=== PATIENT | male | born 1950 | race African-American/Black ===

== ENCOUNTER 2016-09-10 08:56 | Emergency (ER) | payer OTHER ==
[~2016-09-10] VITALS: Ht 175.3 cm; Wt 59.0 kg
[~2016-09-10 08:56] MED LIST: ACETAMINOPHEN-1 EAC1 ORAL; ALBUTEROL SULF8.5 GM INH; ASPIR 8181 MG ORAL; BENAZEPRIL HCL20 MG ORAL; IBUPROFEN600 MG ORAL; INDOMETHACIN75 MG ORAL; OMEPRAZOLE20 M2 ORAL
--- NOTE | 2016-09-10 09:17 | Emergency Room Report ---
History of Present Illness General Chief Complaint: Pain Source: Patient Present Illness HPI Patient present with complaints of right flank pain ongoing for the past one day He reports that he thinks he might of strained it as he was reaching for a jacket However the pain has not been persisting on the right flank area Pain is worse with movement Denies any chest pain or shortness of breath Patient does drink alcohol regularly And there is some right upper quadrant component to the pain as well Denies any vomiting or diarrhea Allergies: Coded Allergies: No Known Allergies (Unverified , 02/03/14) Patient History Past Medical History: see triage record Pertinent Family History: none Reviewed Nursing Documentation: PMH: Agreed, PSxH: Agreed Nursing Documentation-PMH Past Medical History: No History, Except For Hx Hypertension: Yes Review of Systems All Other Systems: negative except mentioned in HPI Physical Exam Vital Signs Date Time Temp Pulse Resp B/P Pulse Ox O2 Delivery O2 Flow Rate FiO2 09/10/16 09:00 97.7 96 15 175/99 98 Room Air Sp02 EP Interpretation: reviewed, normal General Appearance: well appearing, no apparent distress Head: normocephalic, atraumatic Eyes: bilateral eye EOMI, bilateral eye PERRL, bilateral eye other - Mild scleral icterus ENT: hearing grossly normal, normal pharynx, TMs + canals normal, uvula midline Neck: full range of motion, supple, no meningismus, no bony tend Respiratory: lungs clear, normal breath sounds, no rhonchi, no respiratory distress, no retraction, no accessory muscle use Cardiovascular #1: normal peripheral pulses, regular rate, rhythm, no edema, no gallop, no JVD, no murmur Gastrointestinal: normal bowel sounds, non tender, soft, no mass, no organomegaly, non-distended, no guarding, no hernia, no pulsatile mass, no rebound Genitourinary: no CVA tenderness Musculoskeletal: normal inspection Neurologic: oriented x3, responsive, 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 tested, motor strength/ tone normal, sensory intact Psychiatric: mood/affect normal Skin: normal color, no rash, warm/dry, palpation normal Lymphatic: normal inspection, no adenopathy Medical Decision Making Diagnostic Impression: Primary Impression: Flank pain Additional Impressions: Kidney stone Alcoholic hepatitis ER Course Multiple differentials considered Including but not limited to kidney disease, liver disease, infectious pathology Patient has history of significant alcohol abuse Liver function tests remain at similar elevated levels as previous CT does show questionable small kidney stone on the right side Remains hemodynamically stable at this time feels improved and is appropriate for close outpatient followup Labs Test 09/10/16 09:24 White Blood Count 6.2 K/UL (4.8-10.8) Red Blood Count 4.07 M/UL (4.70-6.10) Hemoglobin 13.5 G/DL (14.2-18.0) Hematocrit 41.6 % (42.0-52.0) Mean Corpuscular Volume 102 FL (80-99) Mean Corpuscular Hemoglobin 33.3 PG (27.0-31.0) Mean Corpuscular Hemoglobin Concent 32.6 G/DL (32.0-36.0) Red Cell Distribution Width 15.4 % (11.6-14.8) Platelet Count 146 K/UL (150-450) Mean Platelet Volume 8.2 FL (6.5-10.1) Neutrophils (%) (Auto) 45.7 % (45.0-75.0) Lymphocytes (%) (Auto) 34.8 % (20.0-45.0) Monocytes (%) (Auto) 13.4 % (1.0-10.0) Eosinophils (%) (Auto) 3.9 % (0.0-3.0) Basophils (%) (Auto) 2.2 % (0.0-2.0) Urine Color Pale yellow Urine Appearance Clear Urine pH 6 (4.5-8.0) Urine Specific [place] 1.015 (1.005-1.035) Urine Protein Negative (NEGATIVE) Urine Glucose (UA) Negative (NEGATIVE) Urine Ketones Negative (NEGATIVE) Urine Occult Blood Negative (NEGATIVE) Urine Nitrite Negative (NEGATIVE) Urine Bilirubin Negative (NEGATIVE) Urine Urobilinogen Normal MG/DL (0.0-1.0) Urine Leukocyte Esterase Negative (NEGATIVE) Sodium Level 136 mEQ/L (135-145) Potassium Level 3.9 mEQ/L (3.4-4.9) Chloride Level 97 mEQ/L (98-107) Carbon Dioxide Level 26 mEQ/L (20-30) Anion Gap 13 (5-15) Blood Urea Nitrogen 17 mg/dL (7-23) Creatinine 1.0 mg/dL (0.7-1.2) Estimat Glomerular Filtration Rate > 60 mL/min (>60) Glucose Level 120 mg/dL (74-106) Calcium Level 8.8 mg/dL (8.6-10.2) Total Bilirubin 0.5 mg/dL (0.0-1.2) Aspartate Amino Transf (AST/SGOT) 67 U/L (5-40) Alanine Aminotransferase (ALT/SGPT) 47 U/L (3-41) Alkaline Phosphatase 172 U/L (40-129) Total Protein 7.1 g/dL (6.6-8.7) Albumin 3.4 g/dL (3.5-5.2) Globulin 3.7 g/dL Albumin/Globulin Ratio 0.9 (1.0-2.7) Lipase 28 U/L (< 60) Serum Alcohol < 10 mg/dL Rhythm Strip Diag. Results EP Interpretation: yes Rate: 78 Rhythm: NSR, no PVC's, no ectopy CT/MRI/US Diagnostic Results CT/MRI/US Diagnostic Results : Impression CT abdomen pelvis:Impression: Possible wall thickening of the proximal duodenum , if real could indicate duodenitis or peptic ulcer disease. Possible wall thickening of the gastric antrum, more likely an artifact of under distention No acute abnormality otherwise Small questionable faint nonobstructive calculus within the right renal collecting system Diverticulosis. No evidence of diverticulitis. Last Vital Signs Date Time Temp Pulse Resp B/P Pulse Ox O2 Delivery O2 Flow Rate FiO2 09/10/16 09:00 97.7 96 15 175/99 98 Room Air Status: improved Disposition: HOME, SELF-CARE Condition: Improved Scripts Famotidine (PEPCID) 40 Mg Tablet 40 MG PO DAILY, #14 TAB 0 Refills Prov: YURIDIA HOPKINS D.O. 09/10/16 Referrals: NOT CHOSEN IPA/MD,REFERRING (PCP) Additional Instructions: Patient is provided with the discharge instructions notified to follow up with primary doctor in the next 2-3 days otherwise return to the er with any worsening symptoms. Please note that this report is being documented using [employer] technology. This can lead to erroneous entry secondary to incorrect interpretation by the dictating instrument. YURIDIA HOPKINS D.O. Sep 10, 2016 09:17
[2016-09-10 09:57] LABS: BASOPHILS % (AUTO) 2.2 % (0.0-2.0); EOSINOPHILS % (AUTO) 3.9 % (0.0-3.0); LYMPHOCYTES % (AUTO) 34.8 % (20.0-45.0); MEAN CORPUSCULAR HEMOGLOBIN 33.3 PG (27.0-31.0); MEAN CORPUSCULAR HGB CONC 32.6 G/DL (32.0-36.0); MEAN CORPUSCULAR VOLUME 102 FL (80-99); MEAN PLATELET VOLUME 8.2 FL (6.5-10.1); MONOCYTES % (AUTO) 13.4 % (1.0-10.0); NEUTROPHILS % (AUTO) 45.7 % (45.0-75.0); PLATELET COUNT 146 K/UL (150-450); RED BLOOD COUNT 4.07 M/UL (4.70-6.10); RED CELL DISTRIBUTION WIDTH 15.4 % (11.6-14.8); WHITE BLOOD COUNT 6.2 K/UL (4.8-10.8)
[2016-09-10 09:58] LABS: ALANINE AMINOTRANSFERASE 47 U/L (3-41); ALBUMIN/GLOBULIN RATIO 0.9 (1.0-2.7); ALCOHOL < 10 mg/dL; ANION GAP 13 (5-15); ASPARTATE AMINO TRANSFERASE 67 U/L (5-40); CALCIUM 8.8 mg/dL (8.6-10.2); CARBON DIOXIDE 26 mEQ/L (20-30); CHLORIDE 97 mEQ/L (98-107); GLOMERULAR FILTRATION RATE > 60 mL/min (>60); HEMOLYSIS 9; LIPASE 28 U/L (< 60); POTASSIUM 3.9 mEQ/L (3.4-4.9); SODIUM 136 mEQ/L (135-145); TOTAL PROTEIN 7.1 g/dL (6.6-8.7)
[2016-09-10 10:01] LABS: APPEARANCE,URINE CLEAR; KETONES,URINE NEGATIVE (NEGATIVE); LEUKOCYTE ESTERASE ,URINE NEGATIVE (NEGATIVE); NITRITE,URINE NEGATIVE (NEGATIVE); PH,URINE 6 (4.5-8.0); PROTEIN,URINE NEGATIVE (NEGATIVE); UROBILINOGEN,URINE NORMAL MG/DL (0.0-1.0)
[2016-09-10] MEDS ORDERED: PEPCID40 MG PO (10:38)
--- NOTE | 2016-09-10 11:02 | Diagnostic Imaging Report ---
Indication: Right flank pain Technique: Spiral acquisitions obtained through the abdomen and pelvis. No oral or IV contrast utilized, per urinary stone protocol. Multiplanar reconstructions were generated. Total dose length product 437 mGycm. CTDIvol(s) 9 mGy. Dose reduction achieved using automated exposure control Comparison: None Findings: A very small faint calculus is seen within the right renal collecting system in the interpolar region. No left renal calculi demonstrated. No ureteral calculi, hydronephrosis, hydroureter. The bladder is nondistended, apparently slightly thick walled. The prostate is prominent. There is colonic diverticulosis, predominantly involving the right colon. No evidence of diverticulitis. The appendix is normal. No small bowel distention. No free or loculated intraperitoneal air or fluid. Distal esophagus is unremarkable. There is questionable wall thickening of the gastric antrum, probably artifact of under distention. There is suggestion of wall thickening of the proximal duodenum. Lack of IV contrast limits assessment of the solid organs. The liver demonstrates a calcification within segment 6. The gallbladder and bile ducts are unremarkable. The pancreas, spleen, adrenals are unremarkable. No retroperitoneal or mesenteric mass or adenopathy. No pelvic mass or adenopathy. The included lung bases are clear. The bones are unremarkable except for minimal degenerative spondylosis changes and degenerative changes of the hips. Impression: Possible wall thickening of the proximal duodenum, if real could indicate duodenitis or peptic ulcer disease. Possible wall thickening of the gastric antrum, more likely an artifact of under distention No acute abnormality otherwise Small questionable faint nonobstructive calculus within the right renal collecting system Diverticulosis. No evidence of diverticulitis. Incidental findings as noted, including granulomatous calcification within the liver, minimal degenerative changes of the spine and hips The CT scanner at [facility] is accredited by the [employer] and the scans are performed using protocols designed to limit radiation exposure to as low as reasonably achievable to attain images of sufficient resolution adequate for diagnostic evaluation.
[2016-09-10 11:15] VITALS: BP 175/99
[2016-09-10 11:21] VITALS: BP 175/99
== END 2016-09-10 11:22 | disposition home or self-care (01) ==
LOC: EMR 09:14
DX: N20.0 Calculus of kidney (principal); K70.10 Alcoholic hepatitis without ascites; I10 Essential (primary) hypertension; K57.90 Diverticulosis of intestine, part unspecified, without perforation or abscess without bleeding
CPT/HCPCS: 36415; 74176; 80053; 80329; 81003; 83690; 85025; 99284

== ENCOUNTER 2019-04-18 14:51 | Emergency (ER) | payer MEDICARE, OTHER ==
[~2019-04-18] VITALS: Ht 175.3 cm; Wt 61.2 kg
[~2019-04-18 14:51] MED LIST changes: +PEPCID40 MG PO
[2019-04-18 14:56] VITALS: BP 147/81
[2019-04-18] MEDS ORDERED: Acetaminophen 500mg (ES) tab ORAL ONE (15:30)
--- NOTE | 2019-04-18 15:41 | Emergency Room Report ---
History of Present Illness General Chief Complaint: Pain Source: Patient, Medical Record Present Illness HPI 68-year-old male presents with right middle finger pain, patient injured his finger when he got caught in a door month ago, now with recurrent pain, he thinks he needs the skin to grow back, he only wants a splint to protect the tip of the finger he endorses sharp pain aggravated by touching things, alleviated by not touching things, severity is mild, patient does not want any x -rays Allergies: Coded Allergies: No Known Allergies (Unverified , 04/18/19) Patient History Past Medical History: see triage record Reviewed Nursing Documentation: PMH: Agreed; PSxH: Agreed Nursing Documentation-PMH Past Medical History: No History, Except For Hx Hypertension: Yes Review of Systems All Other Systems: negative except mentioned in HPI Physical Exam Vital Signs Date Time Temp Pulse Resp B/P (MAP) Pulse Ox O2 Delivery O2 Flow Rate FiO2 04/18/19 14:56 97.2 88 18 147/81 96 Room Air General Appearance: well appearing, no apparent distress Head: normocephalic, atraumatic ENT: hearing grossly normal, normal voice Neck: full range of motion, supple Respiratory: no respiratory distress, speaking full sentences Musculoskeletal: other - Right middle finger: Unremarkable slight abrasion at the tip, no pus no drainage no swelling, sensation grossly intact Neurologic: alert, normal gait Psychiatric: mood/affect normal Skin: no rash Medical Decision Making Diagnostic Impression: Primary Impression: Finger pain, right ER Course 68-year-old male presents with right middle finger pain, patient does not want any invasive measures he only wants a splint differential diagnosis includes felon, abrasion, fracture Will provide a middle finger splint disposition home with return precautions Last Vital Signs Date Time Temp Pulse Resp B/P (MAP) Pulse Ox O2 Delivery O2 Flow Rate FiO2 04/18/19 14:56 97.2 88 18 147/81 (103) 96 Room Air Disposition: HOME, SELF-CARE Condition: Stable Referrals: [facility] Patient Instructions: Finger Sprain, [id number] Additional Instructions: The patient was provided with discharge instructions, notified to follow-up with a primary care doctor and or specialist in the next 24-48 hours, and to return to the ED if they have worsening of their symptoms. Please note that this report is being documented using [employer] technology. This can lead to erroneous entry secondary to incorrect interpretation by the dictating instrument. Roland Lawrence MD Apr 18, 2019 15:41
[2019-04-18] MEDS ORDERED: Bacitracin Oint UD TOPIC ONE (15:45)
[2019-04-18 16:26] VITALS: BP 147/81
== END 2019-04-18 15:55 | disposition home or self-care (01) ==
LOC: EMR 15:50
DX: M79.644 Pain in right finger(s) (principal); I10 Essential (primary) hypertension
CPT/HCPCS: 99282